=== PATIENT | male | born 1960 | race African-American/Black ===

== ENCOUNTER 2021-01-04 10:06 | Outpatient (CLI) | payer OTHER | END 2021-01-04 20:16 | disposition home or self-care (01) | LOC: US 10:06 | PROVIDERS: ATTEND Internal Medicine | DX: R80.1 Persistent proteinuria, unspecified (principal) ==

== ENCOUNTER 2021-01-10 09:58 | Outpatient (CLI) | payer OTHER ==
[2021-01-10 11:03] LABS: PLATELET COUNT 407 K/uL (142-355)
[2021-01-10 11:17] LABS: POTASSIUM 5.1 mmol/L (3.6-5.2)
== END 2021-01-10 19:04 | disposition home or self-care (01) ==
LOC: LABW 09:58
PROVIDERS: ATTEND Internal Medicine
DX: N18.2 Chronic kidney disease, stage 2 (mild) (principal); R80.1 Persistent proteinuria, unspecified
CPT/HCPCS: 36415; 80053; 81000; 82043; 82306; 82570; 83516; 83970; 84155; 84165; 85027; 85652; 86038; 86140; 86160; 86225; 86255